=== PATIENT | female | born 1990 | race Caucasian/White ===

== ENCOUNTER 2019-04-14 03:13 | Observation (INO) | payer MEDICAID ==
[~2019-04-14] VITALS: Ht 162.6 cm; Wt 59.3 kg
[2019-04-14 03:28] VITALS: BP 141/91
[2019-04-14 04:22] LABS: Basophils # (auto) 0 uL; Basophils % (auto) 0.4 % (0.0-2.0); Eosinophils # (auto) 0.2 uL; Eosinophils % (auto) 1.9 % (0.0-7.0); Hematocrit 33.8 % (36.0-46.0); Hemoglobin 11.9 g/dL (12.2-16.2); Lymphocytes # (auto) 2.4 uL; Lymphocytes % (auto) 25.7 % (10.0-50.0); Mean Corpuscular Hgb Conc. 35.2 g/dL (32.0-36.0); Mean Corpuscular Volume 96.7 fL (80.0-100.0); Monocytes # (auto) 0.5 uL; Monocytes % (auto) 5.3 % (0.0-12.0); Neutrophils # (auto) 6.2 uL; Neutrophils % (auto) 66.7 % (37.0-80.0); Platelet Count (auto) 173 10^3/uL (140-450); White Blood Cell 9.2 10^3/uL (4.4-10.8)
[2019-04-14 04:25] LABS: Urine Bacteria FEW /hpf (None Seen); Urine Blood Negative /uL (Negative); Urine WBC 1 /hpf (0 - 5)
[2019-04-14 04:45] LABS: Alanine Aminotransferase 28 U/L (13-56); Albumin 2.5 g/dL (3.4-5.0); Amylase 60 U/L (25-115); Anion Gap 6 (5-15); Aspartate Aminotransferase 22 U/L (15-37); Blood Urea Nitrogen 13 mg/dL (7-18); Calcium 7.9 mg/dL (8.5-10.1); Carbon Dioxide 27 mmol/L (21-32); Chloride 105 mmol/L (98-107); GFR African American 158 mL/min; GFR Non-African American 131 mL/min; Glucose 83 mg/dL (74-106); Lipase 132 U/L (73-393); Potassium 3.3 mmol/L (3.5-5.1); Sodium 138 mmol/L (136-145)
[2019-04-14 04:50] LABS: Alkaline Phosphatase 80 U/L (45-117); Bilirubin, Total 0.1 mg/dL (0.2-1.0); Total Protein 6.6 g/dL (6.4-8.2)
== END 2019-04-14 05:52 | disposition home or self-care (01) | DRG 566 ==
LOC: ER 03:20 → LDRP 03:41
PROVIDERS: ADMIT Specialist; ATTEND Specialist
DX: O62.9 Abnormality of forces of labor, unspecified (principal); F17.210 Nicotine dependence, cigarettes, uncomplicated; O99.332 Smoking (tobacco) complicating pregnancy, second trimester; Z3A.26 26 weeks gestation of pregnancy
CPT/HCPCS: 36415; 59025; 76805; 80053; 81001; 81002; 82150; 83690; 84484; 84702; 85025; 86850; 86900; 86901; 99284; G0378